=== PATIENT | female | born 1940 | race Caucasian/White ===

== ENCOUNTER 2017-07-17 06:37 | Inpatient (IN) ==
--- NOTE | 2017-07-17 07:38 | Emergency Department Report ---
GI Bleed HPI - General Chief complaint: GI Bleed Stated complaint: rectal bleeding Time Seen by Provider: 07/17/17 07:38 Source: patient Mode of arrival: ambulatory Limitations: no limitations - History of Present Illness HPI Narrative: Patient is a 76-year-old female history of liver cirrhosis unknown etiology. Patient presents to the ER for evaluation of light red blood per rectum. Patient's had 6-7 episodes of bright red blood with clots stooling. Patient states the water and so dark she's been unable to the bottom of the toilet. Patient beginning to feel mildly weak, decided this morning to present to the ER for evaluation on arrival vital signs are within defined limits MD complaint: blood on toilet paper, blood streaked stool, gross hematochezia Onset (ago): hour(s) Consistency: constant - Related Data Home Medications Medication Instructions Recorded Confirmed Atenolol 50 mg PO BID #0 01/03/11 07/17/17 Sertraline HCl [Zoloft] 12.5 mg PO DAILY #0 02/04/12 07/17/17 Spironolactone 25 mg PO BID #0 tab 02/13/14 07/17/17 Hydrocodone/APAP 7.5/325 [[place] 1 tab PO HS PRN 12/29/16 07/17/17 7.5/325] Allergies Allergy/AdvReac Type Severity Reaction Status Date / Time [place] Inhibitors Allergy Unknown Verified 12/29/16 11:29 erythromycin base Allergy Unknown Verified 12/29/16 11:29 Penicillins Allergy Unknown Verified 12/29/16 11:29 Sulfa (Sulfonamide Allergy Unknown Verified 12/29/16 11:29 Antibiotics) "ALL NAUSEA MEDS" Allergy Unknown Uncoded 02/13/14 21:35 amlodipine besylate Allergy Unknown Uncoded 01/03/11 05:42 benazepril HCl Allergy Unknown Uncoded 01/03/11 05:42 Review of Systems Constitutional: Reports: weakness. Denies: fever, chills ENT: Denies: ear pain, throat pain, dental pain Cardiovascular: Denies: chest pain, palpitations, dyspnea on exertion Respiratory: Denies: cough, dyspnea, wheezes Gastrointestinal: Reports: hematochezia. Denies: abdominal pain, nausea, vomiting Genitourinary: Denies: urgency, dysuria, frequency Musculoskeletal: Denies: back pain, joint swelling Neurological: Denies: headache Endocrine: Denies: fatigue Hematological/Lymphatic: Reports: easy bleeding, easy bruising PFSH Patient Stated Medical History Cataracts Yes Other HEENT Yes: WEARS GLASSES Hypertension Yes Other Respiratory Yes: "TUMORS IN LUNGS" Cirrhosis Yes Gastroesophageal Reflux Yes Disease Anemia Yes Osteoarthritis Yes Anesthesia Reactions Yes: NAUSEA, CAN HEAR/FEEL EVERYTHING Blood Transfusions Yes Post Menopausal Yes - Social History Smoking status: Never smoker Substance use type: does not use Alcohol intake frequency: does not drink Physical Exam - Limitations Limitations: no limitations - General General appearance: alert, in no apparent distress - ENT ENT exam: Present: normal exam, normal oropharynx, TM's normal bilaterally - Neck Neck exam: Present: full ROM, trachea midline - Chest Chest inspection: Present: symmetric chest wall rise. Absent: tenderness - Respiratory Respiratory exam: Present: normal lung sounds bilaterally. Absent: respiratory distress, wheezes, stridor - Cardiovascular Cardiovascular exam: Present: regular rate, normal rhythm, normal heart sounds - Abdominal Exam Abdominal exam: Present: soft, normal bowel sounds. Absent: distention, tenderness - Rectal Exam Rectal exam: Present: normal inspection, normal rectal tone, hemorrhoids, other (no bloody stool or bright red blood perirectally on examination). Absent: mass , tenderness - Extremities Exam Extremities exam: Absent: tenderness - Back Exam Back exam: Absent: tenderness - Skin Skin exam: Present: warm, dry - Neurological Exam Neurological exam: Present: alert, oriented X3 - Psychiatric Psychiatric exam: Present: normal affect, normal mood Course Vital Signs Temperature 97.9 F 07/17/17 06:45 Pulse Rate 68 07/17/17 06:45 Respiratory Rate 16 07/17/17 06:45 Blood Pressure 172/72 H 07/17/17 06:45 Pulse Oximetry 95 07/17/17 06:45 Temperature 97.9 F 07/17/17 06:45 Pulse Rate 68 07/17/17 06:45 Respiratory Rate 16 07/17/17 06:45 Blood Pressure 172/72 H 07/17/17 06:45 Pulse Oximetry 95 07/17/17 06:45 GI Bleed - MDM Narrative Medical decision making narrative: Discuss briefly with Dr. Ball patient's vital signs are stable, patient is not orthostatic hemoglobin 13.4. Okay to discharge patient home. Patient had another large bright red blood with clotting defecation. Rediscussed with Dr. Ball he would recommend admit to hospitalist service. Discuss case with Dr. Dickson he will admit observation status - Differential Diagnosis Likely: hemorrhoids, infectious diarrhea, esophageal varices, gastritis, Lower gastrointestinal hemorrhage, hematochezia, melena, anal fissure - Medical Records Attestation: I reviewed the patient's medical records. - Lab Data Attestation: I reviewed the patient's lab results. Result diagrams: 07/17/17 06:58 07/17/17 06:58 Lab Results 07/17/17 07/17/17 07/17/17 Range/Units 06:58 06:58 06:58 WBC 2.7 L (4.5-11.0) T/MM3 RBC 4.34 (4.00-5.20) M/MM3 Hgb 13.4 (12-16) GM/DL Hct 39.7 (36-46) % MCV 91.5 (80-100) UM3 MCH 30.9 (26-34) UUG MCHC 33.8 (31-37) GM/DL RDW Std Deviation 46.4 (36.9-50.2) FL Plt Count 89 L (130-400) T/MM3 MPV 10.6 (9.4-12.4) UM3 Immature Gran % (Auto) 0.0 (0.0-0.5) % Neut % (Auto) 47.3 (33-66) % Lymph % (Auto) 34.3 (23-45) % Mobile % (Auto) 12.5 H (0-9.0) % Eos % (Auto) 5.5 H (0-4) % Baso % (Auto) 0.4 (0-2) % Neut # (Auto) 1.3 L (1.8-7.7) T/MM3 Lymph # (Auto) 0.9 L (1-4.8) T/MM3 Mobile # (Auto) 0.3 (0-0.8) T/MM3 Eos # (Auto) 0.2 (0-0.5) T/MM3 Baso # (Auto) 0.0 (0-0.2) T/MM3 Abs Immat Gran (auto) 0.00 (0.00-0.03) T/MM3 INR 1.21 H (0.92-1.18) APTT 35.9 (24-36) SEC Turbidity < 20 (0-20) Sodium 148 H (134-144) MEQ/L Potassium 3.6 (3.6-5) MEQ/L Chloride 115 H (98-107) MEQ/L Carbon Dioxide 22 (22-30) MEQ/L Anion Gap 11 (5-15) MEQ/L BUN 7.0 (7-17) MG/DL Creatinine 0.7 (0.7-1.2) mg/dL GFR Calculation 81 BUN/Creatinine Ratio 10 (6-26) RATIO Glucose 114 H (65-110) MG/DL Calculated Osmolality 283 H (261-280) MOSM/KG Calcium 9.0 (8.4-10.2) MG/DL Total Bilirubin 2.50 H (0.20-1.30) MG/DL Icterus Index < 2 (0-7) AST 41 H (14-36) U/L ALT 17 (1-35) U/L Alkaline Phosphatase 159 H (38-126) U/L Total Protein 7.1 (6.3-8.2) g/dL Albumin 3.3 L (3.5-5.0) g/dL Globulin 3.8 H (2.4-3.6) G/DL Albumin/Globulin Ratio 0.9 L (1.1-2.2) RATIO Specimen Hemolysis < 15 (0-25) Disposition Clinical Impression: Lower gastrointestinal hemorrhage Disposition: To [facility] Condition: Stable Prescriptions: No Action Atenolol 50 mg PO BID #0 Sertraline HCl [Zoloft] 12.5 mg PO DAILY #0 Spironolactone 25 mg PO BID #0 tab Hydrocodone/APAP 7.5/325 [[place] 7.5/325] 1 tab PO HS PRN PRN Reason: Pain Referrals: Zachary Frederick MD [Family Provider] - Time of Disposition: 09:26 - Seen By: physician
[2017-07-17] MEDS ORDERED: NS 1,000 ML IV ONE (07:53)
[2017-07-17] MEDS: SALINE FLUSH 10ml SYRINGE IVF PRN (08:19)
[2017-07-17] MEDS ORDERED: HYDROCODONE/APAP 7.5 MG/325 MG TABLET PO PRN (10:04)
[2017-07-17 10:08] VITALS: BMI 30.5
--- NOTE | 2017-07-17 11:23 | History & Physical Report ---
History of Present Illness Date: 07/17/17 Chief complaint: Bleeding HPI: Susan Bonilla is a 76 year old woman who presented to [facility] for further evaluation of rectal bleeding. She had a little bit of abdominal pain and a normal bowel movement without straining around 2029 on 07/16/17. This was almost pure blood, mixed with very soft stool, and even some pieces of lettuce from a recent salad. Initially, she wasn't too alarmed because it has been occurring intermittently, usually after lifting something heavy. However, usually she only has 1 bloody bowel movement then it resolves. It tends to occur maybe a couple times per year. In the morning of 06/27/17, she had 6 more frankly bloody, large, bowel movements. She started feeling lightheaded, weak, fatigued, short of breath. She has not had any abdominal pain, nausea, or vomiting. Her appetite has been reduced for over a year, but she's been drinking ok. She's lost about 20 lbs in 2017, unintentionally. She denies dysuria or hematuria but sometimes her urine appears darker. She has chronic shoulder, knee, and back pain but denies acute injuries/joint swelling. She fell about 3 months ago, requiring stitches above her right eye, but did not have any other injuries. She occasionally has a low-grade fever every once in a while and she had a " hint of the flu" for 1 1/2 months, and is still having a little bit of sinus congestion. She has occasional bleeding from her nose. She also tends to bruise easily. She attributes her poor appetite and easily bleeding/bruising to cirrhosis. She has right leg swelling, which is chronic. She denies chest pain, palpitations, unilateral weakness or paresthesias, dysphagia, difficulty concentrating or speaking (to her knowledge). In the ED, hgb was stable at 13.4. WBC was low at 2.7, platelets were 89 (consistent with liver disease). She had an elevated sodium level at 148. Total bili was 2.50, AST 41, alk phos 159. INR was 1.21. She had another bloody stool while in the ED. Dr. Ball and Dr. Kenny were notified, and the patient was admitted to [facility] under observation status. Review of Systems All systems PM: 10-point ROS was reviewed, no additional remarkable complaints except - EENMT Eyes: Present: requires corrective lenses - Psychiatric Psychiatric: Absent: anxiety, depression - Allergic/Immunologic Allergic/Immunologic: Present: seasonal rhinorrhea Past Medical History Cryptogenic cirrhosis, stage IV Pulmonary nodules/tumors requiring monitoring HTN Depression OA and chronic pain requiring PRN narcotics Chronic right leg swelling Obesity, BMI >30 Surgical History: D&C (1960s). Danielle fundoplication (1974). Cholecystectomy. Appendectomy. Total abdominal hysterectomy; also removed a benign tumor from bladder. Lumbar spine surgery. Cataracts. Right knee replacement. Liver biopsy (2011) showing stage 4 liver disease. EGD by Dr. Camarena in 2017 requiring banding of small varices. Colonoscopy by Dr. Ramirez (since retired) in 2014: recommended next scope in 10 years. Right eye surgery (2018) Family History Updates: Father of a blood clot to the brain at age 61. He also had heart disease. Mother at age 89 of a stroke. Sister still living at age 94. 5 brothers: all have passed. Oldest brother had cancer of the jaw, but ultimately of sepsis from facial ya stemming from a heating pad. One of a heart attack and might have had colon cancer. One of metastatic prostate cancer. One of leukemia. Another brother from alcoholic liver disease. - Social History Smoking status: Never smoker Substance use type: does not use Alcohol intake frequency: does not drink Household members: none () Social history: PCP: Dr. Frederick GI: Dr. Camarena Medications Home Medications Medication Instructions Recorded Confirmed Type Hydrocodone/APAP 7.5/325 [[place] 0.5 - 1 tab PO QID PRN 12/29/16 07/17/17 History 7.5/325] Atenolol [Tenormin] 50 mg PO HS 07/17/17 07/17/17 History Sertraline [Zoloft] 25 mg PO HS 07/17/17 07/17/17 History Spironolactone [Aldactone] 50 mg PO DAILY 07/17/17 07/17/17 History hydrOXYzine HCl [Hydroxyzine HCl] 12.5 mg PO QID PRN 07/17/17 07/17/17 History Allergies Allergy/AdvReac Type Severity Reaction Status Date / Time [place]YENNE Inhibitors Allergy Unknown Verified 07/17/17 10:30 erythromycin base Allergy Unknown Verified 07/17/17 10:30 Penicillins Allergy Unknown Verified 07/17/17 10:30 Sulfa (Sulfonamide Allergy Unknown Verified 07/17/17 10:30 Antibiotics) "ALL NAUSEA MEDS" Allergy Unknown Uncoded 02/13/14 21:35 amlodipine besylate Allergy Unknown Uncoded 07/17/17 10:30 benazepril HCl Allergy Unknown Uncoded 07/17/17 10:30 Exam Vital Signs: Temperature 98.2 F 07/17/17 10:06 Pulse Rate 63 07/17/17 10:06 Respiratory Rate 16 07/17/17 10:06 Blood Pressure 151/65 H 07/17/17 10:06 Pulse Oximetry 96 07/17/17 10:06 Height/Weight/BMI: Height 1.68 m Weight 85.9 kg Body Mass Index 30.5 - Constitutional Present: no acute distress, well nourished, well developed - Routine HEENT Exam Head: Present: normocephalic Eye: Present: PERRL. Absent: conjunctival icterus, scleral injection ENT: Present: oropharynx clear - Routine Neck Exam Present: supple - Routine Respiratory Exam Present: CTA bilaterally - Routine Cardiovascular Exam Present: RRR, S1, S2 (3/6 systolic) - Routine Abdominal Exam Present: soft, normoactive bowel sounds, non distended, non tender - Routine Extremities Exam Present: edema (RLE - chronic) - Routine Skin Exam Present: intact, dry, warm. Absent: jaundice - Routine Neurological Exam Present: alert, oriented X3, CN II-XII intact, normal speech - Routine Psychiatric Exam Present: normal affect, normal thought process (confused about when she retired ; initially thought it was mid-1980s but later determined it was early-mid ), cooperative Results - Labs CBC & Chem 7: 07/17/17 11:52 07/17/17 06:58 Assessment and Plan (1) Lower gastrointestinal hemorrhage Current visit: Yes Status: Acute Assessment and Plan: IMPRESSION Lower GI bleed Hypernatremia, POA Chronic leukopenia, thrombocytopenia, coagulopathy secondary to liver disease Cryptogenic cirrhosis, stage IV, with hyperbilirubinemia Pulmonary nodules/tumors requiring monitoring HTN Depression OA and chronic pain requiring PRN narcotics Chronic right leg swelling Obesity, BMI >30 PLAN Admit, observation status, under the hospitalist service. Dr. Ball consulted: recommends conservative management at this time with hgb monitoring, clear liquid diet, and PPI. Hypernatremia: will give 1L of 1/2 NS with 20 mEq KCl Monitor WBC and platelets. Repeat INR in am. Mildly confused about dates today; will check ammonia level at next hgb draw. Continue home meds. Code status: Requests DNR. Would not want a feeding tube. Care to be returned to Dr. Frederick and Dr. Camarena at discharge. DVT Prophylaxis: SCD's GI Prophylaxis: Protonix Resuscitation Status: Do Not Resuscitate - Physician Narrative Physician: Will Kenny MD Narrative: Date: 07/17/17 Time: 1120 Have independently interviewed and examined pt. Chart reviewed. Case discussed with ED physician and my MUNITIONS WORKER. Care plan developed with my supervision; agree with above. Presents to ED secondary to rectal bleeding. Onset last night. Will have this happen at times, but usually stops spontaneously. Unfortunately, has past further 6 bloody stools. Denies rectal pain or irritation. No ab pain or nausea. Appetite chronically decrease, but stable. Breathing well. Evaluated in ED. Pass further bloody stools in ED. Placed in OBS for monitoring and treatment. Lungs: clear bilaterally, no distress CV: regular AB: soft nt/nd MSE: awake alert Plan: OBS admission. Monitor hemoglobin. Type and screen-transfuse as indicated. Will consult with Dr Ball for surgical evaluation and recommendations. SCD for DVT prevention-no Lovenox/Heparin due to bleeding. IVF x1L then stop. Continue home medications. DNR as per her requests. Hospital Course Summary Disclaimer: The visit summary below is not to be considered part of the above Progress Note. Hospital Course: 07/17/17 Admit, observation status, under the hospitalist service. Dr. Ball consulted: recommends conservative management at this time with hgb monitoring, clear liquid diet, and PPI. Hypernatremia: will give 1L of 1/2 NS with 20 mEq KCl Monitor WBC and platelets. Repeat INR in am. Mildly confused about dates today; will check ammonia level at next hgb draw. Continue home meds. Code status: Requests DNR. Would not want a feeding tube. Care to be returned to Dr. Frederick and Dr. Camarena at discharge.
[2017-07-17] MEDS ORDERED: ACETAMINOPHEN 325 MG TABLET PO PRN (13:20)
[2017-07-17] MEDS: 1/2 NS with KCL 20mEq 1,000 ML IV SCH (14:22)
[2017-07-17] MEDS: PANTOPRAZOLE 40 MG INJECTION IVP SCH (14:22)
--- NOTE | 2017-07-17 15:11 | General Surgery Consult Note ---
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 Danielle fundoplication (1974). Cholecystectomy. Appendectomy. Total abdominal hysterectomy; also removed a benign tumor from bladder. Lumbar spine surgery. Cataracts. Right knee replacement. Liver biopsy (2011) showing stage 4 liver disease. EGD by Dr. Camarena in 01/01/2016 requiring banding of small varices. Colonoscopy by Dr. Ramirez 11/09/2012 Adenomatous polyps x2, diverticulosis and family history of colon cancer in brother. Right eye surgery (2018). Family History Updates: Father of a blood clot to the brain at age 61. He also had heart disease. Mother at age 89 of a stroke. Sister still living at age 94. 5 brothers: all have passed. Brother - colon cancer but of an [place]. Oldest brother had cancer of the jaw, but ultimately of sepsis from facial ya stemming from a heating pad. One of a heart attack and might have had colon cancer. One of metastatic prostate cancer. One of leukemia. Another brother from alcoholic liver disease. - Social History Smoking status: Never smoker Substance use type: does not use Alcohol intake frequency: does not drink Household members: none () Current occupational status: retired Medications Home Medications Medication Instructions Recorded Confirmed Type Hydrocodone/APAP 7.5/325 [[place] 0.5 - 1 tab PO QID PRN 12/29/16 07/17/17 History 7.5/325] Atenolol [Tenormin] 50 mg PO HS 07/17/17 07/17/17 History Sertraline [Zoloft] 25 mg PO HS 07/17/17 07/17/17 History Spironolactone [Aldactone] 50 mg PO DAILY 07/17/17 07/17/17 History hydrOXYzine HCl [Hydroxyzine HCl] 12.5 mg PO QID PRN 07/17/17 07/17/17 History Allergies Allergy/AdvReac Type Severity Reaction Status Date / Time CHEYENNE Inhibitors Allergy Unknown Verified 07/17/17 10:30 erythromycin base Allergy Unknown Verified 07/17/17 10:30 Penicillins Allergy Unknown Verified 07/17/17 10:30 Sulfa (Sulfonamide Allergy Unknown Verified 07/17/17 10:30 Antibiotics) "ALL NAUSEA MEDS" Allergy Unknown Uncoded 02/13/14 21:35 amlodipine besylate Allergy Unknown Uncoded 07/17/17 10:30 benazepril HCl Allergy Unknown Uncoded 07/17/17 10:30 Review of Systems 10-point ROS: negative except for HPI and the following: - Eyes/Ears/Nose/Throat Eyes: Present: other (corrective lenses) - Cardiovascular Cardiovascular: Present: edema/swelling - Gastrointestinal Gastrointestinal: Present: blood in stools - Musculoskeletal Musculoskeletal: Present: joint pain, other (fall recently) - Neurological Neurological: Present: muscle weakness - Psychiatric Psychiatric: Present: anxiety, depression - Hematologic/Lymphatic Hematologic/Lymphatic: Present: easy bruising - Vital Signs Last Vital Signs Temp 98.2 F 07/17/17 10:06 Pulse 63 07/17/17 10:06 Resp 16 07/17/17 10:06 BP 151/65 H 07/17/17 10:06 Pulse Ox 96 07/17/17 10:06 - Laboratory Result Diagrams: 07/17/17 11:52 07/17/17 06:58 General Surgery Results - Results Labs: 07/17/17 11:52 Hospital Course Summary Disclaimer: The visit summary below is not to be considered part of the above Progress Note. Hospital Course: 07/17/17 Admit, observation status, under the hospitalist service. Dr. Ball consulted: recommends conservative management at this time with hgb monitoring, clear liquid diet, and PPI. Hypernatremia: will give 1L of 1/2 NS with 20 mEq KCl Monitor WBC and platelets. Repeat INR in am. Mildly confused about dates today; will check ammonia level at next hgb draw. Continue home meds. Code status: Requests DNR. Would not want a feeding tube. Care to be returned to Dr. Frederick and Dr. Camarena at discharge.
--- NOTE | 2017-07-17 16:28 | Consultation ---
DATE OF CONSULTATION 07/17/2017 FINDINGS Mrs. Bonilla is 76-year-old female whom I was asked to see today as a result of her history for rectal bleeding. Mrs. Bonilla informs me that she does have a history for intermittent rectal bleeding. Patient states that today, however, it was different. Patient states that she typically will "bleed little bit" if she has lifted something heavy. She does have cirrhosis of the liver with known portal hypertension. Patient states she does have some problems with "hemorrhoids" at times. The patient states that last evening she did have an element of some abdominal discomfort. Patient states that this morning when she awakened she had a large bloody stool which was mostly bright red in nature. Patient states that she did not think too much about this but then continued to have ongoing episodes of rectal bleeding. She therefore presented to the emergency room for further evaluation. The patient denied any pain associated with the process of defecation. She denies any element of abdominal pain today. The patient states her last colonoscopy was a couple of years ago and that they had found a few small polyps. 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 Initially in the emergency room the patient did undergo a rectal examination and no blood was noted within the rectal vault. There were no signs of active bleeding. There was some discussion about perhaps sending the patient home. Shortly after this the patient did have another large bloody stool and therefore was admitted to our facility for further care. PAST MEDICAL HISTORY, PAST SURGICAL HISTORY, MEDICATIONS, ALLERGIES, SOCIAL HISTORY, FAMILY HISTORY, REVIEW OF SYSTEMS Performed by my nurse practitioner, Dreik Velazco APRN. PHYSICAL EXAMINATION GENERAL: Mrs. Bonilla is a 76-year-old female who this afternoon did not appear to be in acute distress. VITAL SIGNS: Temperature 98.2, pulse 63, respirations 16, blood pressure 151/65, SAO2 96% on room air. HEENT: Normocephalic. Pupils are equally round and react to light and accommodation. NECK: Supple without lymphadenopathy. CHEST: Clear to auscultation bilaterally. HEART: Regular rate and rhythm. Normal S1 and S2 without gallops, murmurs or clicks. ABDOMEN: Palpation of the abdomen reveals it to be soft and nontender. I do not appreciate any evidence for hepatosplenomegaly nor abnormal masses. EXTREMITIES: Without clubbing, cyanosis, or edema. NEURO: Cranial nerves II-XII grossly intact. Patient is without focal motor or sensory deficits. LABORATORY/RADIOGRAPHIC EVALUATION The patient had a CBC obtained through the emergency room earlier today. Her hemoglobin was 13.4. Repeat hemoglobin was obtained and found to be 12.6. INR was obtained as a result of her history for cirrhosis of the liver. INR was not significantly elevated at 1.2. CMP was obtained and her AST was elevated at 41. Alkaline phosphatase was slightly elevated at 159. Total bilirubin is elevated at 2.5. ASSESSMENT 76-year-old female with known history for idiopathic cirrhosis of the liver with associated portal hypertension and esophageal varices who presents with rectal bleeding. PLAN I have reviewed admission orders. I do not see that she is being treated empirically for possible peptic ulcer disease. Will go ahead and add Protonix to her medical regimen. I do believe the patient can have some clear liquids today. Will follow with serial hemoglobins. I informed the patient that at this time it is my intuition that she likely either has a diverticular bleed or perhaps some bleeding from the anal canal region as a result of her history for portal hypertension. At this point in time I do not plan on proceeding with colonoscopy given the fact that she has had a reported normal colonoscopy with the last two to three years. If, on the other hand, she continues to have an element of ongoing bleeding that does not subside will then proceed with endoscopic evaluation. Hopefully this bleeding will be self-limiting in nature and resolve over the next 24-48 hours. Patient without an acute surgical emergency/abdomen this time. LILLIAN
[2017-07-17] MEDS: POM SPIRONOLACTONE 25 MG TABLET PO SCH (18:47)
[2017-07-17] MEDS: ATENOLOL 50 MG PO SCH (20:01)
[2017-07-18] MEDS: 1/2 NS with KCL 20mEq 1,000 ML IV SCH (02:09)
[2017-07-18] MEDS ORDERED: SERTRALINE 50 MG PO SCH (09:00)
[2017-07-18] MEDS: PANTOPRAZOLE 40 MG INJECTION IVP SCH (09:26)
[2017-07-18] MEDS: ATENOLOL 50 MG PO SCH ×2 (09:31→19:41)
[2017-07-18] MEDS: POM SPIRONOLACTONE 25 MG TABLET PO SCH ×2 (09:32→19:41)
--- NOTE | 2017-07-18 09:32 | General Surgery Progress Note ---
Subjective Patient reports: blood in stool (she had a bright red bloody stool just prior to my arrival, states it is less than prior stools. She would realy like this to get resolved.) - Vital Signs Last Vital Signs Temp 98 F 07/18/17 07:51 Pulse 61 07/18/17 07:51 Resp 18 07/18/17 07:51 BP 138/62 07/18/17 07:51 Pulse Ox 90 07/18/17 07:51 - Laboratory Result Diagrams: 07/18/17 03:53 07/18/17 03:53 - Normal Exam General: awake, alert, oriented, no acute distress Cardiovascular: regular rate Respiratory: clear bilaterally, no labored breathing Abdominal: soft, non-tender Psychiatric: normal affect Assessment and Plan (1) Lower gastrointestinal hemorrhage Current Visit: Yes Status: Acute Plan: HGB dipped a little to 11.6, rectal bleeding is slowing down. Continue with serial HGB and close monitoring. Hospital Course Summary Disclaimer: The visit summary below is not to be considered part of the above Progress Note. Hospital Course: 07/17/17 Admit, observation status, under the hospitalist service. Dr. Ball consulted: recommends conservative management at this time with hgb monitoring, clear liquid diet, and PPI. Hypernatremia: will give 1L of 1/2 NS with 20 mEq KCl Monitor WBC and platelets. Repeat INR in am. Mildly confused about dates today; will check ammonia level at next hgb draw. Continue home meds. Code status: Requests DNR. Would not want a feeding tube. Care to be returned to Dr. Frederick and Dr. Camarena at discharge.
--- NOTE | 2017-07-18 09:49 | Progress Note ---
- Date 07/18/17 Subjective: F/U: Lower GI bleed, anemia, hypernatremia Susan is seen while resting in bed, with family at the bedside. She reports that she feels "crappy" today but does not elaborate on why. She denies any current pain. She does report some dizziness and lightheadedness with standing as well as dyspnea with exertion. No chest pain, palpitation, abdominal pain, nausea, vomiting or dysuria. She continues to have bright red rectal bleeding with clots and states that she is going through about 2 pads an hour or so. Her appetite is poor. Urinary output is stable. Hemoglobin decreased slightly to 11.6. Hypernatremia slowly improving (Na 146). She was seen by Dr. Ball who recommended continuing to trend hemoglobin and monitor closely. Objective Vital signs: Temperature 98 F 07/18/17 07:51 Pulse Rate 61 07/18/17 07:51 Respiratory Rate 18 07/18/17 07:51 Blood Pressure 138/62 07/18/17 07:51 Pulse Oximetry 90 07/18/17 07:51 Height/Weight/BMI: Height 5 ft 6 in Weight 190 lb 11.198 oz Body Mass Index 30.5 Comments: Patient resting in bed with family at the bedside. - Constitutional Present: no acute distress, well nourished, well developed, cooperative - Routine HEENT Exam Head: Present: normocephalic, atraumatic Eye: Present: PERRL. Absent: conjunctival icterus ENT: Present: mucous membranes moist - Routine Respiratory Exam Present: crackles (bibasilar). Absent: accessory muscle use, dyspnea, decreased breath sounds, respiratory distress, wheezes - Routine Cardiovascular Exam Present: RRR, S1, S2 - Routine Abdominal Exam Present: soft, normoactive bowel sounds, non tender, distended - Routine Extremities Exam Present: edema (2+ bilaterally), full ROM, pulses intact - Routine Back/Spine/Pelvis Exam Back/Spine: Present: full ROM. Absent: vertebral tenderness - Routine Musculoskeletal Exam Musculoskeletal: Present: moving extremities well - Routine Skin Exam Present: intact, dry, warm. Absent: jaundice Comments: afebrile. - Routine Neurological Exam Present: alert, oriented X3, CN II-XII intact, moving all extremities, hearing grossly intact, normal speech - Routine Lymphatic Exam Lymphatic: Absent: lymphedema - Routine Psychiatric Exam Present: normal affect, cooperative Results - Labs CBC & Chem 7: 07/18/17 09:56 07/18/17 03:53 Labs: Pancytopenia - WBC 2.2, Hbg 11.6, Plt 71. Hypernatremia - Na 146 - improving. Assessment and Plan (1) Lower gastrointestinal hemorrhage Current visit: Yes Status: Acute Assessment and Plan: IMPRESSION Lower GI bleed Anemia (hgb 11.6), NEW DIAGNOSIS - 07/18/17. Hypernatremia, POA - improving. 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 Persistent rectal bleeding with reported clots. Continue conservative management with close monitoring Hgb and clear liquid diet per Dr. Ball. Hgb decreased 11.6 today. Continue to monitor closely given acute bleeding. Hypernatremia improving (Na 146). Continue to monitor. Will give Lasix 40mg IV x 1 dose now for fluid overload. Monitor daily weight closely. Encourage incentive spirometry. Repeat INR, CBC and BMP in am. Monitor blood counts, electrolytes and renal function. DVT Prophylaxis: SCD's GI Prophylaxis: Protonix Resuscitation Status: Do Not Resuscitate - Time spent with patient Time with patient PN: 25 minutes - Physician Narrative Physician: Will Kenny MD Narrative: Date: 07/18/17 Time: 1555 Have independently interviewed and examined pt. Chart reviewed. Case discussed with CM and my PA. Care plan developed with my supervision; agree with above. Doing okay this afternoon. Has had 3 bowel movements so far that are not bloody (does see pink discoloration). Notes abdominal gas. Appetite fair-fills up after little oral intake. Urinating well post Lasix. Strength and stability could be better. Breathing well. No chest pain. Lungs: clear CV: regular AB: soft nt/nd MSE: awake alert appropriate Plan: Changed to inpatient admission secondary to persistent GI blood loss. Continue to monitor hemoglobin. May try simethicone for gas. PT/OT to help functional status. Continue clear liquids. Can d/c tele. Hospital Course Summary Disclaimer: The visit summary below is not to be considered part of the above Progress Note. Hospital Course: Plan - 07/17/17. Admit, observation status, under the hospitalist service. Dr. Ball consulted: recommends conservative management at this time with hgb monitoring, clear liquid diet, and PPI. Hypernatremia: will give 1L of 1/2 NS with 20 mEq KCl Monitor WBC and platelets. Repeat INR in am. Mildly confused about dates today; will check ammonia level at next hgb draw. Continue home meds. Code status: Requests DNR. Would not want a feeding tube. Care to be returned to Dr. Frederick and Dr. Camarena at discharge. PLAN - 07/18/17. Persistent rectal bleeding with reported clots. Continue conservative management with close monitoring Hgb and clear liquid diet per Dr. Ball. Will change admission status to inpatient due to persistent GI bleed. Hgb decreased 11.6 today. Continue to monitor closely given acute bleeding. Hypernatremia improving (Na 146). Continue to monitor. Will give Lasix 40mg IV x 1 dose now for fluid overload. Monitor daily weight closely. Encourage incentive spirometry. PT/OT eval/treat to help improve functional status. Repeat INR, CBC and BMP in am. Monitor blood counts, electrolytes and renal function.
[2017-07-18] MEDS ORDERED: FUROSEMIDE 40 MG/4 ML INJECTION IVP ONE (10:01)
[2017-07-18] MEDS: SPIRONOLACTONE 25 MG TABLET PO SCH (13:57)
[2017-07-18] MEDS: SALINE FLUSH 10ml SYRINGE IVF PRN (15:12)
[2017-07-18] MEDS ORDERED: MAG-AL + SIM ORAL LIQUID 30ml PO PRN (15:57)
[2017-07-18] MEDS ORDERED: SIMETHICONE 125 MG CAPSULE PO PRN (15:57)
[2017-07-18] MEDS: SERTRALINE 50 MG TABLET PO SCH (20:06)
[2017-07-18] MEDS: ATENOLOL 50 MG TABLET PO SCH (20:06)
--- NOTE | 2017-07-19 08:24 | General Surgery Progress Note ---
Subjective Patient reports: tolerating a regular diet, blood in stool (states she had small smear of red blood) Narrative: She states she had some low BP during the night and was given a 500 bolus of NS , and BP came back up. Denies dizziness. She has mild discomfort in epigastric area with palpation this morning, which was not there yesterday. - Vital Signs Last Vital Signs Temp 98.2 F 07/19/17 07:18 Pulse 68 07/19/17 07:18 Resp 20 07/19/17 07:18 BP 114/55 07/19/17 07:18 Pulse Ox 91 07/19/17 07:18 - Laboratory Result Diagrams: 07/19/17 03:50 07/19/17 03:50 - Abnormal Exam Abdominal: tender (mild epigastric) - Normal Exam General: awake, alert, oriented Respiratory: no labored breathing Abdominal: BS normo active x4, soft Psychiatric: normal affect Assessment and Plan (1) Lower gastrointestinal hemorrhage Current Visit: Yes Status: Acute Plan: Minimal rectal bleeding since yesterday, HGB stable at 11.6 today, (11.7 yesterday) New epigastric pain. EGD/Colonoscopy tomorrow. Will need to F/U with [facility] upon discharge regarding varices/cirrhosis. Hospital Course Summary Disclaimer: The visit summary below is not to be considered part of the above Progress Note. Hospital Course: Plan - 07/17/17. Admit, observation status, under the hospitalist service. Dr. Ball consulted: recommends conservative management at this time with hgb monitoring, clear liquid diet, and PPI. Hypernatremia: will give 1L of 1/2 NS with 20 mEq KCl Monitor WBC and platelets. Repeat INR in am. Mildly confused about dates today; will check ammonia level at next hgb draw. Continue home meds. Code status: Requests DNR. Would not want a feeding tube. Care to be returned to Dr. Frederick and Dr. Camarena at discharge. PLAN - 07/18/17. Persistent rectal bleeding with reported clots. Continue conservative management with close monitoring Hgb and clear liquid diet per Dr. Ball. Will change admission status to inpatient due to persistent GI bleed. Hgb decreased 11.6 today. Continue to monitor closely given acute bleeding. Hypernatremia improving (Na 146). Continue to monitor. Will give Lasix 40mg IV x 1 dose now for fluid overload. Monitor daily weight closely. Encourage incentive spirometry. PT/OT eval/treat to help improve functional status. Repeat INR, CBC and BMP in am. Monitor blood counts, electrolytes and renal function.
--- NOTE | 2017-07-19 09:23 | Progress Note ---
DATE 07/18/2017 FINDINGS Mrs. Bonilla was seen this evening on rounds. She denies any element of abdominal pain. She has had no further bloody stools per her report. VITALS: Temperature 98.1, pulse 64, respirations 16, blood pressure 128/64, SaO2 94% on room air. CHEST: Clear to auscultation bilaterally. HEART: Regular rate and rhythm. Normal S1 and S2 without gallops, murmurs or clicks. ABDOMEN: Soft, nontender. No evidence for guarding or rebound. LABORATORY/RADIOGRAPH EVALUATION The patient's hemoglobin is actually improved today at 13.2. BMP obtained and found to be without marked abnormalities. Sodium and chloride are slightly elevated at 146 and 114, respectively. ASSESSMENT 76-year-old female with known idiopathic cirrhosis who presented with hematochezia that has now resolved on its own behalf. PLAN Will advance diet to regular diet. Repeat CBC tomorrow. If the patient's hemoglobin remains stable and she has had no further rectal bleeding, the patient may be able to be discharged tomorrow. Will have the patient follow up with her manufacturing analyst to determine whether or not a repeat colonoscopy is needed. Apparently the patient has had a colonoscopy within the not too distant past by her manufacturing analyst. LILLIAN
[2017-07-19] MEDS: SPIRONOLACTONE 25 MG TABLET PO SCH (09:41)
[2017-07-19] MEDS: PANTOPRAZOLE 40 MG INJECTION IVP SCH (09:41)
[2017-07-19] MEDS: SALINE FLUSH 10ml SYRINGE IVF PRN (09:41)
--- NOTE | 2017-07-19 10:07 | Progress Note ---
- Date 07/19/17 Subjective: Susan states that she had 2 small bloody bowel movements with clots since 2200 last night. Her lightheadedness is back to baseline (she always has a little). She reports that she had low BP last night as well. She feels short of breath with exertion, which is typical and not worse than normal. She denies abdominal cramping or nausea. She ate all of her breakfast this morning. Objective Vital signs: Temperature 98.2 F 07/19/17 07:18 Pulse Rate 68 07/19/17 07:18 Respiratory Rate 20 07/19/17 07:18 Blood Pressure 114/55 07/19/17 07:18 Pulse Oximetry 91 07/19/17 07:18 Height/Weight/BMI: Weight 84.2 kg - Constitutional Present: no acute distress, well nourished, well developed - Routine HEENT Exam Head: Present: normocephalic ENT: Present: oropharynx clear - Routine Respiratory Exam Present: decreased breath sounds, CTA bilaterally - Routine Cardiovascular Exam Present: RRR, S1, S2, murmur - Routine Abdominal Exam Present: soft, normoactive bowel sounds, non distended, non tender - Routine Extremities Exam Present: edema (RLE) - Routine Skin Exam Present: intact, erythema, warm - Routine Neurological Exam Present: alert, oriented X3, normal speech - Routine Psychiatric Exam Present: normal affect, normal thought process, cooperative Results - Labs CBC & Chem 7: 07/19/17 09:53 07/19/17 03:50 Assessment and Plan (1) Lower gastrointestinal hemorrhage Current visit: Yes Status: Acute Assessment and Plan: IMPRESSION Lower GI bleed Anemia (hgb 11.6), NEW DIAGNOSIS - 07/18/17. Hypernatremia, POA - improving. Hypokalemia, not POA Chronic leukopenia, thrombocytopenia, coagulopathy secondary to liver disease Cryptogenic cirrhosis, stage IV, with hyperbilirubinemia Pulmonary nodules/tumors requiring monitoring HTN Depression OA and chronic pain requiring PRN narcotics Chronic right leg swelling Obesity, BMI >30 PLAN - 07/19/17. Rectal bleeding is improving, but ongoing with 2 more bloody stools last night. Furthermore, she had hypotension with BP of 93/67 and received a 500 mL fluid bolus. Her BP is stable this am at 114/55. Hgb 11.9; plt up to 81. INR 1.34. Discussed with Dr. Ball -- will bowel prep today and plan on colonoscopy tomorrow. K decreased slightly to 3.5; will give KDur 20 mEq x1. Na remains slightly high but stable at 146. Discussed with Dr. Kenny. DVT Prophylaxis: SCD's GI Prophylaxis: Protonix Resuscitation Status: Do Not Resuscitate - Time spent with patient Time with patient PN: 25 minutes - Physician Narrative Physician: Will Kenny MD Narrative: Date: 07/19/17 Time: 1120 Have independently interviewed and examined pt. Chart reviewed. Case discussed with CM and my SCALER PACKER. Care plan developed with my supervision; agree with above. Doing fair-passed some bloody stools late yesterday evening. Not having ab pain , discomfort, or nausea. No increased dizziness/unsteadiness with positional changes. Breathing well. No palpitations. Urinating well. Lungs: clear bilaterally CV: regular AB: soft nt/nd MSE: awake alert appropriate Plan: Replace potassium. Dr Ball starting bowel prep in anticipation of colonoscopy tomorrow. Continue to increase activities as able. Monitor lab. Hospital Course Summary Disclaimer: The visit summary below is not to be considered part of the above Progress Note. Hospital Course: 07/17/17. Admit, observation status, under the hospitalist service. Dr. Ball consulted: recommends conservative management at this time with hgb monitoring, clear liquid diet, and PPI. Hypernatremia: will give 1L of 1/2 NS with 20 mEq KCl Monitor WBC and platelets. Repeat INR in am. Mildly confused about dates today; will check ammonia level at next hgb draw. Continue home meds. Code status: Requests DNR. Would not want a feeding tube. Care to be returned to Dr. Frederick and Dr. Camarena at discharge. 07/18/17. Persistent rectal bleeding with reported clots. Continue conservative management with close monitoring Hgb and clear liquid diet per Dr. Ball. Will change admission status to inpatient due to persistent GI bleed. Hgb decreased 11.6 today. Continue to monitor closely given acute bleeding. Hypernatremia improving (Na 146). Continue to monitor. Will give Lasix 40mg IV x 1 dose now for fluid overload. Monitor daily weight closely. Encourage incentive spirometry. PT/OT eval/treat to help improve functional status. Repeat INR, CBC and BMP in am. Monitor blood counts, electrolytes and renal function. 07/19/17 Rectal bleeding is improving, but ongoing with 2 more bloody stools last night. Furthermore, she had hypotension with BP of 93/67 and received a 500 mL fluid bolus. Her BP is stable this am at 114/55. Hgb 11.9; plt up to 81. INR 1.34. Discussed with Dr. Ball -- will bowel prep today and plan on colonoscopy tomorrow. K decreased slightly to 3.5; will give KDur 20 mEq x1. Na remains slightly high but stable at 146.
[2017-07-19] MEDS ORDERED: Bisacodyl EC TAB 5 MG TABLET PO ONE (13:30)
--- NOTE | 2017-07-19 14:37 | Progress Note ---
DATE 07/19/2017 FINDINGS Susan was seen this morning on rounds. She informs me that she did have two small bloody stools last evening that were bright red in nature. She denied severe abdominal pain. OBJECTIVE VITALS: Afebrile. Normotensive. Last recorded vitals include temperature 98.2 , pulse 68, respirations 20, blood pressure 114/55, SaO2 91% on room air. CHEST: Clear to auscultation bilaterally. HEART: Regular rate and rhythm. Normal S1, S2, without gallops, murmurs or clicks. ABDOMEN: Palpation of the abdomen reveals it to be soft and nontender. No evidence for guarding ort rebound. LABORATORY/RADIOGRAPHIC EVALUATION The patient had a CBC today and her hemoglobin has drifted down slightly to 11.6 from 12.4. BMP obtained and found to be without marked abnormalities. INR remains stable at 1.34. ASSESSMENT 76-year-old female with known cirrhosis and portal hypertension who has developed recurrent rectal bleeding. PLAN Bidirectional endoscopy. I informed Susan that given the fact that she has now developed recurrent bleeding, I do feel that we should proceed with endoscopic evaluation to identify the etiology for her ongoing rectal bleeding. Given her known history for varices and the fact that this blood is bright red in nature, I would recommend that we proceed with both an EGD as well as a colonoscopy for further evaluation. Risks of endoscopy were explained which included, but were not inclusive of, bleeding or perforation requiring surgery. The patient understood and agreed to proceed with endoscopic evaluation. Will initiate bowel prep today in preparation for endoscopy. MTDD
[2017-07-19] MEDS ORDERED: POLYETHYL. GLYCOL 3350 BOTTLE 238 GM PO ONE (15:30)
[2017-07-19] MEDS: ATENOLOL 50 MG TABLET PO SCH (20:29)
[2017-07-19] MEDS: SERTRALINE 50 MG TABLET PO SCH (20:29)
[2017-07-20] MEDS ORDERED: LIDOCAINE VISCOUS 2% ORAL LIQUID 15ml ONE (08:15)
[2017-07-20] MEDS: SALINE FLUSH 10ml SYRINGE IVF PRN (08:57)
[2017-07-20] MEDS: PANTOPRAZOLE 40 MG INJECTION IVP SCH (08:58)
[2017-07-20] MEDS: SPIRONOLACTONE 25 MG TABLET PO SCH (08:58)
--- NOTE | 2017-07-20 09:50 | Progress Note ---
- Date 07/20/17 Subjective: Susan has no new complaints. She tolerated the bowel prep, but began to have what she describes as moderate bleeding with the prep. She is expecting to be taken for EGD and colonoscopy today. She denies any new dizziness/ lightheadedness. She denies any new shortness of breath, no chest pain. Denies any nausea or vomiting, abdominal cramping. Objective Vital signs: Temperature 98.0 F 07/20/17 07:59 Pulse Rate 66 07/20/17 07:59 Respiratory Rate 16 07/20/17 07:59 Blood Pressure 128/54 07/20/17 07:59 Pulse Oximetry 91 07/20/17 07:59 Height/Weight/BMI: Weight 83.5 kg - Constitutional Present: no acute distress, well nourished, well developed - Routine HEENT Exam Head: Present: normocephalic Eye: Present: PERRL. Absent: conjunctival icterus, scleral injection ENT: Present: mucous membranes moist, oropharynx clear - Routine Respiratory Exam Present: CTA bilaterally - Routine Cardiovascular Exam Present: RRR, S1, S2, murmur (3/6 systolic) - Routine Abdominal Exam Present: soft, normoactive bowel sounds, non distended, non tender - Routine Extremities Exam Present: edema (right leg edema, chronic), pulses intact, normal capillary refill - Routine Musculoskeletal Exam Musculoskeletal: Present: no clubbing or cyanosis - Routine Skin Exam Present: intact, dry, warm - Routine Neurological Exam Present: alert, oriented X3, normal speech - Routine Psychiatric Exam Present: normal affect, normal thought process, cooperative Results - Labs CBC & Chem 7: 07/20/17 04:12 07/20/17 04:12 Assessment and Plan (1) Lower gastrointestinal hemorrhage Current visit: Yes Status: Acute Assessment and Plan: IMPRESSION Lower GI bleed Anemia (hgb 11.6), NEW DIAGNOSIS - 07/18/17. Hypernatremia, POA - improving. Hypokalemia, not POA Chronic leukopenia, thrombocytopenia, coagulopathy secondary to liver disease Cryptogenic cirrhosis, stage IV, with hyperbilirubinemia Pulmonary nodules/tumors requiring monitoring HTN Depression OA and chronic pain requiring PRN narcotics Chronic right leg swelling Obesity, BMI >30 PLAN - 07/20/17. EGD and colonoscopy are planned today per Dr. Ball. Hemoglobin remains fairly stable, 11.6. Blood pressure has remained stable, no further episodes of hypotension since the evening after 07/18/17. On CMP, sodium improved to 145, potassium is slightly low at 3.5. We'll give extra K-Dur with supper tonight. Total bilirubin has improved to 2.30. Discussed with attending. Zoya Colonoscopy showing large hemorrhoids. Esophageal varices see on EGD. DVT Prophylaxis: SCD's GI Prophylaxis: Protonix Resuscitation Status: Do Not Resuscitate - Time spent with patient Time with patient PN: 25 minutes - Physician Narrative Physician: Will Kenny MD Narrative: Date: 07/20/17 Time: 1628 Have independently interviewed and examined pt. Chart reviewed. Case discussed with CM and my METAL FILER. Care plan developed with my supervision; agree with above. Doing okay post procedures. Awake and alert. No nausea, but feels slightly gassy. Breathing stable. Lungs; clear CV: regular AB: soft nt/nd +BS MSE: awake alert Plan: Discussed finding with pt - with hemorrhoids, due need to minimize constipation (as straining at stool would increase pressure to hemorrhoids). Definitively need to continue with treatments for underlying cirrhosis. Patient wondering about different PCP - did mention Dr Flores and Dr Marina. Monitor for further bleeding. Monitor hemoglobin. Encourage activities. Hospital Course Summary Disclaimer: The visit summary below is not to be considered part of the above Progress Note. Hospital Course: 07/17/17. Admit, observation status, under the hospitalist service. Dr. Ball consulted: recommends conservative management at this time with hgb monitoring, clear liquid diet, and PPI. Hypernatremia: will give 1L of 1/2 NS with 20 mEq KCl Monitor WBC and platelets. Repeat INR in am. Mildly confused about dates today; will check ammonia level at next hgb draw. Continue home meds. Code status: Requests DNR. Would not want a feeding tube. Care to be returned to Dr. Frederick and Dr. Camarena at discharge. 07/18/17. Persistent rectal bleeding with reported clots. Continue conservative management with close monitoring Hgb and clear liquid diet per Dr. Ball. Will change admission status to inpatient due to persistent GI bleed. Hgb decreased 11.6 today. Continue to monitor closely given acute bleeding. Hypernatremia improving (Na 146). Continue to monitor. Will give Lasix 40mg IV x 1 dose now for fluid overload. Monitor daily weight closely. Encourage incentive spirometry. PT/OT eval/treat to help improve functional status. Repeat INR, CBC and BMP in am. Monitor blood counts, electrolytes and renal function. 07/19/17 Rectal bleeding is improving, but ongoing with 2 more bloody stools last night. Furthermore, she had hypotension with BP of 93/67 and received a 500 mL fluid bolus. Her BP is stable this am at 114/55. Hgb 11.9; plt up to 81. INR 1.34. Discussed with Dr. Ball -- will bowel prep today and plan on colonoscopy tomorrow. K decreased slightly to 3.5; will give KDur 20 mEq x1. Na remains slightly high but stable at 146. 07/20/17 EGD and colonoscopy are planned today per Dr. Ball. Hemoglobin remains fairly stable, 11.6. Blood pressure has remained stable, no further episodes of hypotension since the evening after 07/18/17. On CMP, sodium improved to 145, potassium is slightly low at 3.5. We'll give extra K-Dur with supper tonight. Total bilirubin has improved to 2.30.
--- NOTE | 2017-07-20 11:40 | Anesthesia Preoperative Report ---
Anesthesia Preoperative Record - Date and Time Date: 07/20/17 Preoperative Diagnosis: rectal bleeding Proposed Procedure: EGD/ colonoscopy NPO Since Date: 07/20/17 NPO Since Time: 00:00 Allergies/Adverse Reactions: Allergies Allergy/AdvReac Type Severity Reaction Status Date / Time [place] Inhibitors Allergy Unknown Verified 07/17/17 10:30 erythromycin base Allergy Unknown Verified 07/17/17 10:30 Penicillins Allergy Unknown Verified 07/17/17 10:30 Sulfa (Sulfonamide Allergy Unknown Verified 07/17/17 10:30 Antibiotics) "ALL NAUSEA MEDS" Allergy Unknown Uncoded 02/13/14 21:35 amlodipine besylate Allergy Unknown Uncoded 07/17/17 10:30 benazepril HCl Allergy Unknown Uncoded 07/17/17 10:30 - Vital Signs Vital Signs: Temperature 98.0 F 07/20/17 07:59 Pulse Rate 66 07/20/17 07:59 Respiratory Rate 16 07/20/17 07:59 Blood Pressure 128/54 07/20/17 07:59 Pulse Oximetry 91 07/20/17 07:59 Height and Weight: Weight 83.5 kg - Medications Inpatient Medications: Current Medications Acetaminophen (Tylenol) 325 mg PO Q5H PRN PRN Reason: Discomfort Hydrocodone Bitart/Acetaminophen ([place] 7.5/325) 1 tab PO HS PRN PRN Reason: Pain Al Hydroxide/Mg Hydroxide (Maalox Plus) 30 ml PO Q3H PRN PRN Reason: Dyspepsia Atenolol (Tenormin) 50 mg PO HS ABRAHAN Hydroxyzine HCl (Atarax) 12.5 mg PO QID PRN PRN Reason: Itching Pantoprazole Sodium (Protonix Iv) 40 mg IVP DAILY [facility] Last Admin: 07/20/17 08:58 Dose: 40 mg Potassium Chloride (K-Dur 20 Meq Tablet) 20 meq PO O ONE Stop: 07/20/17 17:31 Sertraline HCl (Zoloft) 25 mg PO DAILY [facility] Simethicone (Phazyme) 125 mg PO Q6HR PRN PRN Reason: Gas Sodium Chloride (Iv Flush) 10 - 80 ml IVF PRN PRN PRN Reason: Flushing Last Admin: 07/20/17 08:57 Dose: 20 ml Spironolactone (Aldactone) 50 mg PO DAILY [facility] Home Medications: Home Medications Medication Instructions Recorded Confirmed Type Hydrocodone/APAP 7.5/325 [[place] 0.5 - 1 tab PO QID PRN 12/29/16 07/17/17 History 7.5/325] Atenolol [Tenormin] 50 mg PO HS 07/17/17 07/17/17 History Sertraline [Zoloft] 25 mg PO HS 07/17/17 07/17/17 History Spironolactone [Aldactone] 50 mg PO DAILY 07/17/17 07/17/17 History hydrOXYzine HCl [Hydroxyzine HCl] 12.5 mg PO QID PRN 07/17/17 07/17/17 History Is Patient on Beta Ovidio?: Yes Beta Ovidio Last Dose Date/Time: 07/20/17 @ 0600 - Medical History Respiratory: Reports: Pneumonia (years ago), Sleep Apnea, Other ("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") Cardiovascular: Reports: Hypertension Gastrointestional: Reports: Cirrhosis, Gastroesophageal Reflux Disease, Gastrointestinal Bleeding Neuro/Musculoskeletal: Reports: HX.MS.OSAR, Back Problems, Depression Other History: Reports: Anesthesia Reactions (NAUSEA, CAN HEAR/FEEL EVERYTHING) , Blood Transfusions - Surgical History HEENT Surgeries: Reports: Eye Surgery (CATARACTS REMOVED/apr-eye surgery- "floater got stuck in the fluid") GI Surgery/Treatments: Reports: Appendectomy, Cholecystectomy, Colonoscopy, Other (SURGERY TO CORRECT GERD) Musculoskeletal Surgery/Tx: Reports: Total Knee Replacement (RIGHT KNEE-needs left replaced as well) Reproductive Surgery/Treatment: Reports: Hysterectomy Hx Family Anesthesia Reaction: No History of Motion Sickness: No - Social History Smoking Status: Never smoker Hx Chewing Tobacco Use: No Second Hand Exposure: No Substance Use Type: does not use Alcohol Intake Frequency: does not drink - Pertinent Findings Laboratory: CBC and BMP 07/20/17 04:12 07/20/17 04:12 BMP 07/20/17 04:12 Sodium 145 H Potassium 3.5 L Chloride 112 H Carbon Dioxide 24 BUN 7.0 Creatinine 0.7 Glucose 89 Calcium 8.7 Liver Function 07/20/17 Range/Units 04:12 Total Bilirubin 2.30 H (0.20-1.30) MG/DL AST 44 H (14-36) U/L ALT 16 (1-35) U/L Alkaline Phosphatase 101 D (38-126) U/L Albumin 2.8 L (3.5-5.0) g/dL EKG: Sinus Rhythm - Physical Exam Respiratory Exam: Present: lungs clear Cardiovascular Exam: Present: regular rate and rhythm - Airway Assessment Mallampati Score: II TMD: 3 Fingerbreadths Neck Extension: fair Overall Assessment: no airway concerns - ASA ASA Score: 3 - Plan Anesthesia: General TIVA - Discussion Discussion: Discussed risks/options/alternatives of anesthesia and questions answered. Patient consents. Nursing pain assessment noted. Present for Discussion: family member Attestation Statement: Prior to the delivery of any anesthetic medication, I examined the patient, developed the plan, obtained the patient's consent and discussed the risk and benefits of the procedure with the patient/guardian. - Additional Information Seen by Anesthesia: Yes
[2017-07-20] MEDS ORDERED: SCOPOLAMINE 1mg/3 days PATCH (Eq. 1.5 Patch) TD ONE (11:44)
[2017-07-20] MEDS: NS 1,000 ML IV SCH (12:08)
[2017-07-20] MEDS ORDERED: PROPOFOL 1,000 MG/100 ML VIAL ONE (12:38)
--- NOTE | 2017-07-20 14:20 | Procedure Note ---
- Procedure Date/Time: Date: 07/20/17 Time: 1416 Surgeon: Lizzy ASA Score: 3 Proceure: Colonoscopy-forceps polypectomy, EGD - Preoperative Diagnosis Rectal bleeding - Postoperative Colonoscopy Diagnosis Diverticulosis Polyps at: Other (large hemorrhoids) Polyps at (cm): 20 cm - Postoperative EGD Diagnosis Postoperative EGD Diagnosis: Other (Esophageal varices) - Complications Estimated Blood Loss: See Anesthesia Record. Vital Signs: See Anesthesia and PACU record.
[2017-07-20] MEDS ORDERED: LIDOCAINE VISCOUS 2% ORAL LIQUID 15ml PO ONE (15:47)
[2017-07-20] MEDS ORDERED: ATENOLOL 50 MG TABLET PO SCH (21:00)
--- NOTE | 2017-07-20 23:04 | Operative Note ---
DATE OF SERVICE 07/20/2017 SURGEON Reynold Ball MD POSTOPERATIVE DIAGNOSES Personal history for intermittent rectal bleeding. Known history for idiopathic cirrhosis. POSTOPERATIVE DIAGNOSES Personal history for intermittent rectal bleeding. Known history for idiopathic cirrhosis, esophageal varices, significant internal hemorrhoids, sigmoid diverticulosis. Colonic polyp x 1 at 20 cm from the anal verge. PROCEDURE Esophagogastroduodenoscopy, colonoscopy with polypectomy via cold biopsy technique. ANESTHESIA TIVA BRIEF HISTORY/INDICATIONS Mrs. 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 The patient in her custodial has had the misfortune of developing idiopathic cirrhosis. She recently was admitted to our facility as a result of her history for rectal bleeding. The patient has continued to have intermittent rectal bleeding since her admission and it was elected therefore to proceed with endoscopic evaluation. For completeness please refer to notes included in the patient's chart. FINDINGS Upon upper endoscopy the patient was found to have a component of some esophageal varices. There was no evidence for recent bleeding. Stomach and duodenum were within normal limits. Upon colonoscopy the patient was found to have a moderate number of diverticula within the sigmoid colon region. She was found have a single benign-appearing colonic polyp that was 5 mm in diameter located at 20 cm from the anal verge which was removed in its entirety via cold biopsy technique. There was no evidence for angiodysplastic lesions or jen malignancies. The patient was found to have quite prominent internal hemorrhoids which more than likely were underlying etiology for her intermittent rectal bleeding. NARRATIVE OF PROCEDURE After informed consent was obtained the patient was brought to the endoscopy suite and placed in the left lateral decubitus position. Patient subsequently underwent total intravenous anesthesia by the nurse physician assistant surgery at my request. Formal timeout was then completed. Next, an Olympus gastroscope was inserted in the oral hypopharynx and subsequently the esophagus under direct visualization. The gastroscope was advanced through the esophagus, stomach, pylorus, duodenal bulb, second portion of the duodenum. Scope was slowly withdrawn. First and second portions of the duodenum were within normal limits. No evidence of duodenitis or ulcerations was noted. Scope was drawn back to the prepyloric region and antrum. Again, no marked mucosal abnormalities were noted. J- maneuver was then performed. Cardia and fundus were within normal limits. Endoscopically, I did not see any evidence for portal gastropathy. Scope was allowed to straighten and was slowly withdrawn and the remaining corpus of the stomach was well visualized and again without noted abnormalities. Scope was drawn back to the level of the diaphragm. Squamocolumnar junction was located at the level of the diaphragm and was well demarcated with no endoscopic evidence for Kurtz's metaplasia or distal esophagitis. Scope was begun to be slowly withdrawn. One could see fairly prominent submucosal venous structures consistent with her known history for esophageal varices. There was, however, no evidence for erythema nor evidence for ulceration or recent bleeding from these varices. Scope was continued to be slowly withdrawn until it was removed from the patient's oral hypopharynx. Next, attention was directed towards performing a colonoscopy. First, a digital rectal exam was performed. Normal sphincter tone. No rectal masses were appreciated. An Olympus colonoscope was inserted in the anus and advanced with the lumen of the colon under direct visualization at all times until the cecum was ascertained. Triangulation of the tenia coli, ileocecal valve and appendiceal lumen were all visualized. The scope was slowly withdrawn, again maintaining visualization of the lumen at all times. The entire colon was without evidence for angiodysplastic lesions or jen allergies. The patient was found to have a moderate number of diverticula within the sigmoid colon region. As the colonoscope was withdrawn a single polyp at 20 cm from the anal verge was identified. This polyp was about 5 mm in diameter and removed in its entirety via cold biopsy technique. The colonoscope was continued to be withdrawn until it was brought forth back to the rectal vault. J-maneuver was performed. No worrisome perianal pathology was noted. The patient was found to have fairly prominent internal hemorrhoids. This likely was the underlying etiology for her intermittent rectal bleeding. Colonoscope was allowed to straighten and was withdrawn from the anal verge. Patient tolerated the procedure without difficulty and was sent back to preop area in stable condition. LILLIAN
[2017-07-21] MEDS: SALINE FLUSH 10ml SYRINGE IVF PRN (08:42)
[2017-07-21] MEDS: PANTOPRAZOLE 40 MG INJECTION IVP SCH (08:42)
[2017-07-21] MEDS ORDERED: SPIRONOLACTONE 50 MG TABLET PO SCH (09:00)
[2017-07-21] MEDS ORDERED: SERTRALINE 25 MG TABLET PO SCH (09:00)
[2017-07-21] MEDS: NS 1,000 ML IV SCH (09:12)
--- NOTE | 2017-07-21 11:19 | Discharge Summary ---
Discharge Information Date of admission: 07/18/17 13:32 Attending Physician: Augustina Benitez MD Primary care physician: Zachary Frederick MD Consults: Dr. Reynold Ball - Discharge Diagnosis (1) Lower gastrointestinal hemorrhage Status: Acute Lower GI bleed, secondary to internal hemorrhoids Anemia (hgb 11.2). Hypernatremia, POA. 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 Known history for idiopathic cirrhosis. POSTOPERATIVE DIAGNOSES Personal history for intermittent rectal bleeding. Known history for idiopathic cirrhosis, esophageal varices, significant internal hemorrhoids, sigmoid diverticulosis. Colonic polyp x 1 at 20 cm from the anal verge. PROCEDURE Esophagogastroduodenoscopy, colonoscopy with polypectomy via cold biopsy technique. ANESTHESIA TIVA BRIEF HISTORY/INDICATIONS Mrs. 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 The patient in her snf has had the misfortune of developing idiopathic cirrhosis. She recently was admitted to our facility as a result of her history for rectal bleeding. The patient has continued to have intermittent rectal bleeding since her admission and it was elected therefore to proceed with endoscopic evaluation. For completeness please refer to notes included in the patient's chart. FINDINGS Upon upper endoscopy the patient was found to have a component of some esophageal varices. There was no evidence for recent bleeding. Stomach and duodenum were within normal limits. Upon colonoscopy the patient was found to have a moderate number of diverticula within the sigmoid colon region. She was found have a single benign-appearing colonic polyp that was 5 mm in diameter located at 20 cm from the anal verge which was removed in its entirety via cold biopsy technique. There was no evidence for angiodysplastic lesions or jen malignancies. The patient was found to have quite prominent internal hemorrhoids which more than likely were underlying etiology for her intermittent rectal bleeding. NARRATIVE OF PROCEDURE After informed consent was obtained the patient was brought to the endoscopy suite and placed in the left lateral decubitus position. Patient subsequently underwent total intravenous anesthesia by the nurse manager services at my request. Formal timeout was then completed. Next, an Olympus gastroscope was inserted in the oral hypopharynx and subsequently the esophagus under direct visualization. The gastroscope was advanced through the esophagus, stomach, pylorus, duodenal bulb, second portion of the duodenum. Scope was slowly withdrawn. First and second portions of the duodenum were within normal limits. No evidence of duodenitis or ulcerations was noted. Scope was drawn back to the prepyloric region and antrum. Again, no marked mucosal abnormalities were noted. J- maneuver was then performed. Cardia and fundus were within normal limits. Endoscopically, I did not see any evidence for portal gastropathy. Scope was allowed to straighten and was slowly withdrawn and the remaining corpus of the stomach was well visualized and again without noted abnormalities. Scope was drawn back to the level of the diaphragm. Squamocolumnar junction was located at the level of the diaphragm and was well demarcated with no endoscopic evidence for Kurtz's metaplasia or distal esophagitis. Scope was begun to be slowly withdrawn. One could see fairly prominent submucosal venous structures consistent with her known history for esophageal varices. There was, however, no evidence for erythema nor evidence for ulceration or recent bleeding from these varices. Scope was continued to be slowly withdrawn until it was removed from the patient's oral hypopharynx. Next, attention was directed towards performing a colonoscopy. First, a digital rectal exam was performed. Normal sphincter tone. No rectal masses were appreciated. An Olympus colonoscope was inserted in the anus and advanced with the lumen of the colon under direct visualization at all times until the cecum was ascertained. Triangulation of the tenia coli, ileocecal valve and appendiceal lumen were all visualized. The scope was slowly withdrawn, again maintaining visualization of the lumen at all times. The entire colon was without evidence for angiodysplastic lesions or jen allergies. The patient was found to have a moderate number of diverticula within the sigmoid colon region. As the colonoscope was withdrawn a single polyp at 20 cm from the anal verge was identified. This polyp was about 5 mm in diameter and removed in its entirety via cold biopsy technique. The colonoscope was continued to be withdrawn until it was brought forth back to the rectal vault. J-maneuver was performed. No worrisome perianal pathology was noted. The patient was found to have fairly prominent internal hemorrhoids. This likely was the underlying etiology for her intermittent rectal bleeding. Colonoscope was allowed to straighten and was withdrawn from the anal verge. Patient tolerated the procedure without difficulty and was sent back to preop area in stable condition. - Laboratory Labs: 07/21/17 04:41 07/21/17 04:41 - Pathology Colon polyp: Hyperplastic polyp, no adenomatous component or malignant neoplasm. History of Present Illness HPI: Susan Bonilla is a 76 year old woman who presented to [facility] for further evaluation of rectal bleeding. She had a little bit of abdominal pain and a normal bowel movement without straining around 2030 on 07/16/17. This was almost pure blood, mixed with very soft stool, and even some pieces of lettuce from a recent salad. Initially, she wasn't too alarmed because it has been occurring intermittently, usually after lifting something heavy. However, usually she only has 1 bloody bowel movement then it resolves. It tends to occur maybe a couple times per year. In the morning of 06/27/17, she had 6 more frankly bloody, large, bowel movements. She started feeling lightheaded, weak, fatigued, short of breath. She has not had any abdominal pain, nausea, or vomiting. Her appetite has been reduced for over a year, but she's been drinking ok. She's lost about 20 lbs in 2017, unintentionally. She denies dysuria or hematuria but sometimes her urine appears darker. She has chronic shoulder, knee, and back pain but denies acute injuries/joint swelling. She fell about 3 months ago, requiring stitches above her right eye, but did not have any other injuries. She occasionally has a low-grade fever every once in a while and she had a " hint of the flu" for 1 1/2 months, and is still having a little bit of sinus congestion. She has occasional bleeding from her nose. She also tends to bruise easily. She attributes her poor appetite and easily bleeding/bruising to cirrhosis. She has right leg swelling, which is chronic. She denies chest pain, palpitations, unilateral weakness or paresthesias, dysphagia, difficulty concentrating or speaking (to her knowledge). In the ED, hgb was stable at 13.4. WBC was low at 2.7, platelets were 89 (consistent with liver disease). She had an elevated sodium level at 148. Total bili was 2.50, AST 41, alk phos 159. INR was 1.21. She had another bloody stool while in the ED. Dr. Ball and Dr. Kenny were notified, and the patient was admitted to [facility] under observation status. Objective Vital signs: Temperature 97.0 F 07/21/17 07:47 Pulse Rate 62 07/21/17 07:47 Respiratory Rate 14 07/21/17 07:47 Blood Pressure 120/47 07/21/17 07:47 Pulse Oximetry 93 07/21/17 07:47 Height/Weight/BMI: Weight 83.9 kg - Constitutional Present: no acute distress, well nourished, well developed - Routine HEENT Exam Head: Present: normocephalic Eye: Present: PERRL. Absent: conjunctival icterus, scleral injection ENT: Present: mucous membranes moist, oropharynx clear - Routine Respiratory Exam Present: CTA bilaterally - Routine Cardiovascular Exam Present: RRR, S1, S2, murmur (2-3/6 systolic) - Routine Abdominal Exam Present: soft, normoactive bowel sounds, non distended, non tender - Routine Extremities Exam Present: edema (nonpitting to right leg, chronic), pulses intact, normal capillary refill - Routine Skin Exam Present: intact, dry, warm - Routine Neurological Exam Present: alert, oriented X3, normal speech - Routine Psychiatric Exam Present: normal affect, normal thought process, cooperative Hospital Course This is a general summary of the patient's hospital course. For more details refer to the complete medical record. Hospital course: 07/17/17: ADMISSION (Observation) for rectal bleeding Consulted Dr. Ball, who recommendsed conservative management at this time with hgb monitoring, clear liquid diet, and PPI. She was started on 1/2 NS with 20 mEq KCl for hypernatremia and borderline low potassium (3.6). INR 1.21, Total bili 2.50, Ammonia level was 18. 07/18/17: Changed to inpatient status Persistent rectal bleeding with reported clots. Hgb decreased to 11.6. Hypernatremia improving (Na 146). Lasix 40mg IV x 1 dose now for fluid overload. 07/19/17 Had 2 more bloody stools last night. Episode of hypotension with BP of 93/67 for which she received a 500 mL fluid bolus. BP is stable this am at 114/55. Hgb 11.9; platelets up to 81. INR 1.34. Dr. Ball plans to scope: bowel prep ordered. K decreased slightly to 3.5; will give KDur 20 mEq x1. Na remains slightly high but stable at 146. 07/20/17: EGD & COLONOSCOPY Postop diagnoses: esophageal varices, significant internal hemorrhoids, sigmoid diverticulosis. Colonic polyp x 1 at 20 cm from the anal verge. BP stable. Hgb 11.6. Symptoms of anemia improving. K slightly low at 3.5. & extra K-Dur given. Total bilirubin has improved to 2.30. 07/21/17: DISCHARGE HOME WITH HOME HEALTH Hgb 11.2, BP stable. Denies dizziness/lightheadedness/SOA. Had tiny amount of rectal blood, and 1 normal colored bowel movement. Overall, significantly improved and Dr. Ball/Derik Velazco APRN believe she may go home. She needs to prevent constipation; recommend daily MiraLAX and Senna Plus BID, though may benefit from Lactulose at some point. Patient understands discharge plans, will contact Dr. Camarena if further problems arise. PT recommends using a walker 14/11. F/U with Dr. Camarena: call for earliest appt. F/U with PCP in 1 week. Repeat CBC and CMP in about 5 days. There are no changes to routine home medications. Time spent with patient: discharge greater than 30 minutes Resuscitation Status: Do Not Resuscitate Discharge Plan - Discharge Disposition Discharge Date: 07/21/17 Disposition: [facility] Service *Condition: Stable Reason For Visit (Visit label in EMR): rectal bleeding due to internal hemorrhoids - Discharge Medications *Discharge Medications: New PEG 3350 17gm PACKET [Miralax] 17 gm PO DAILY #1 bottle Senna + Docusate [Senna Plus Tablet] 1 each PO BID #60 tab Continue Sertraline [Zoloft] 25 mg PO HS Atenolol [Tenormin] 50 mg PO HS Spironolactone [Aldactone] 50 mg PO DAILY hydrOXYzine HCl [Hydroxyzine HCl] 12.5 mg PO QID PRN PRN Reason: Itching Hydrocodone/APAP 7.5/325 [Harris 7.5/325] 0.5 - 1 tab PO QID PRN PRN Reason: Pain - Discharge Packet/Instructions *Diet: Regular *Activity: No restrictions, except use your walker all the time. *Pain Management/Treatment: Home Harris, as needed. *Wound Care: Not applicable. *Expected Signs/Symptoms: You may feel weak and tired from your hospital course and from mild blood loss anemia. *Notify Physician if: Increased rectal bleeding, vomiting or vomiting blood, abdominal bloating or pain, confusion or passing out, difficulty breathing, chest pain, or any new concerns. *During Business Hours Contact: Dr. Camarena for liver or GI concerns. Dr. Frederick for any other questions. *After Business Hours Contact: The on-call provider for Dr. Camarena and/or Dr. Frederick. You may also call [facility] mill crane operator at [phone] and ask to talk to the on- call provider for Dr. Ball if you have any questions/concerns about your recent EGD/colonoscopy. *Pending Lab/Results: No Pending Lab Outpatient Orders: CBC w Auto Diff-AMS Time Frame: 5 Days, Location: None Selected CMP - Comprehensive Metab-[facility] Time Frame: 5 Days, Location: None Selected - Referrals/Follow Up *Referrals/Follow Up: Joni Camarena MD [Physician] - 07/26/17 3:30 pm Zachary Frederick MD [Family Provider] - 07/28/17 11:30 am - Patient Handouts Patient Handouts: Gastrointestinal Bleeding (DC) - Dismissal Complete Discharge Instructions are:: Incomplete Physician Narrative - Narrative Physician: Augustina Benitez MD Attestation Narrative: Date: 07/21/17 Time: 1:30 PM-I reviewed this chart, the patient history, and the DOLL SURGEON's/PA's documented findings as above. We discussed and formulated the assessment and plan as above with the additions below.-Dr. Benitez I saw the patient earlier today in her room. She stated she was having just a very little bit of rectal bleeding. She has had rectal bleeding off and on for several years but it was much worse this past week. It is very minimal today. She is feeling okay. She plans to go home with home health. PT and OT both evaluated the patient and recommended home with home health. The physical therapist does recommend that she used a 4 wheeled walker. On exam she is alert and oriented and in no acute distress. Chest is clear to auscultation. Cardiovascular reveals a regular rate and rhythm. Abdomen is soft and nontender. Extremities are free of edema. Impression and plan Lower GI bleed most likely secondary to internal hemorrhoids. Mild acute blood loss anemia which did not require transfusion Cryptogenic cirrhosis which she sees Dr. Camarena esophageal varices with known history of esophageal varices, no evidence of acute bleeding Mild gait instability for which she needs to use her 4 wheeled walker She will be discharged today to home with home health. She will follow-up next week with Dr. Camarena. She will also follow-up next week with her primary care physician Dr. Frederick. We discussed that if she has an increase in her bleeding or is feeling worse in any way she should seek medical attention. If her symptoms are severe she should call 911 or go to the emergency room.
[2017-07-21 12:04] VITALS: TEMP 98
[2017-07-21 15:09] VITALS: BP 129/50; PULSE 56; RESP 12; O2SAT 92
--- NOTE | 2017-07-21 15:17 | Progress Note ---
DATE 07/21/2017 FINDINGS Mrs. Bonilla was seen this morning on rounds. She states that she did still have some blood within her stools during the process of defecation. Denies any element of abdominal pain. OBJECTIVE VITALS: Temperature 98.0, pulse 61, respirations 14, blood pressure 119/58, SaO2 94% on room air. CHEST: Clear to auscultation bilaterally. HEART: Regular rate and rhythm. Normal S1, S2, without gallops, murmurs or clicks. ABDOMEN: Palpation of the abdomen reveals it to be soft and nontender. I do not appreciate any evidence for hepatosplenomegaly nor abnormal masses. LABORATORY/RADIOGRAPHIC EVALUATION The patient had a CBC today and her hemoglobin remains stable at 11.2. White count is stable at 2.7. ASSESSMENT 76-year-old female with idiopathic cirrhosis with associated portal hypertension. Patient with rectal bleeding, most likely hemorrhoidal in nature , as a result of her portal hypertension. Status post EGD and colonoscopy with no marked abnormalities noted with the exception of significant internal hemorrhoids. PLAN I did inform the patient that I did not have much to offer her at this point in time from a surgical standpoint. I would not recommend proceeding with hemorrhoidectomy unless her bleeding would become more severe to the point that she requires blood transfusions. I do feel that the risk of proceeding with a hemorrhoidectomy in her situation is fairly high given her cirrhosis with associated portal hypertension. I informed the patient to utilize stool softeners and increase her fiber and fluids once she has been discharged to home. She is to followup with me at this time on an as-needed basis. She will return back to her key worker for ongoing care in regards to her end- stage liver disease. JOSEFINAD
[2017-07-23] MEDS ORDERED: SCOPOLAMINE 1mg/3 days PATCH (Eq. 1.5 Patch) TD SCH (13:15)
[2017-07-26] MEDS ORDERED: SCOPOLAMINE PATCH REMOVAL TD SCH (13:30)
== END 2017-07-21 19:00 | disposition home health service (06) | DRG 394 ==
LOC: ED 06:37 → MED 06:37 → SUATTDRO 07-18 13:32
PROVIDERS: ADMIT Hospitalist; ATTEND Internal Medicine
PROC: END.EGD (2017-07-20 13:00)